=== PATIENT | female | born 2000 | race Caucasian/White ===

== ENCOUNTER 2021-05-25 | Emergency (ER) | payer MEDICAID ==
[~2021-05-25] VITALS: Ht 149.9 cm; Wt 50.0 kg
[2021-05-25 00:18] VITALS: BP 122/66
[2021-05-25] MEDS ORDERED: P50 MT (01:51)
[2021-05-25] MEDS ORDERED: ALBU90AE INH (01:51)
[2021-05-25] MEDS ORDERED: ALBUL MT (01:51)
== END 2021-05-25 02:28 | disposition home or self-care (01) ==
LOC: ER
DX: R07.89 Other chest pain (principal)
CPT/HCPCS: 71045; 81025; 93005; 99283